=== PATIENT | female | born 1960 | race Hispanic/Latino ===

== ENCOUNTER → 2019-05-24 | Outpatient (CLI) | payer MEDICARE | END | disposition home or self-care (01) | LOC: RAH 11:22 | PROVIDERS: ATTEND Family Medicine | DX: Z12.31 Encounter for screening mammogram for malignant neoplasm of breast (principal) | CPT/HCPCS: 77067 ==

== ENCOUNTER → 2024-11-10 | Outpatient (CLI) | payer MEDICARE ==
[~2024-11-10] MED LIST: ATOR20TA65 PO; DIPH25CA85 PO; DOXE10CA2 PO; ERGO2000 PO; LISI2.5T13 PO; METF-526 PO; QUET50TA24 PO
--- NOTE | 2024-11-10 13:30 | NUR ---
MBSS COMPLETED (OUTPATIENT). Recommend pureed solids, mildly thick liquids, and pills crushed with pureed as tolerated. DIAGNOSTIC FINDINGS: Pt coming from [facility] with [facility] assisted [facility] located in [place]. Pt with feeding tube in place however meeting nutrition/hydration via oral intake. As per property caretaker, patient referred for MBSS for possible upgrade from pureed as she occasionally eats solids with no s/s of aspiration. Pt nonverbal, edentulous and with baseline diet of pureed solids and moderately thick liquids. During study, Pt presented with mild oropharyngeal dysphagia characterized by decreased oral motor strength; delayed pharyngeal response trigger and decreased hyo-laryngeal elevation/excursion evidenced by inadequate mastication of solids (swallowing fruit almost whole); prolonged mastication with poor repair; premature spillage to valleculae with spillover to pyriform sinuses; residue on base of tongue, valleculae, pyriform sinuses and posterior pharyngeal wall partially cleared with extra dry swallows; deep non-transient penetration after the swallow with mixed textures; and before the swallow with thin liquids via cup sip; no cough response with penetrations; no aspirations observed. Compensatory strategies: 1. sit upright during oral intake 2. small bites/sips 3. slow oral intake 4. extra dry swallows 5. NO STRAWS 6. avoid melting textures (pudding, jello, etc) COSTING MANAGER reviewed results and recommendations with patient and property caretaker. COSTING MANAGER educated patient on risks and consequences of aspiration. Speech therapy not warranted at this time as patient is nonverbal and not following commands. All questions answered. Addendum: 11/10/[address]ZA GILLETTE Amended: Links added.
--- NOTE | 2024-11-29 10:46 | HMCIMG ---
MODIFIED BARIUM SWALLOW W CINE REASON: DYSPHAGIA, OROPHARYNGEAL; FEEDING DIFFICULTIES FINDINGS: Fluoroscopic assistance was provided to the speech pathologist while performing examination. For findings and dietary recommendations, refer to speech pathologist's report. FLUORO TIME: 2.2 minutes IMPRESSION: Modified barium swallow as described.
== END | disposition home or self-care (01) ==
LOC: RAH 12:40
PROVIDERS: ATTEND Internal Medicine Gastroenterology
DX: R13.12 Dysphagia, oropharyngeal phase (principal); R63.30 Feeding difficulties, unspecified
CPT/HCPCS: 74230; 92611